=== PATIENT | male | born 1985 | race Caucasian/White ===

== ENCOUNTER 2017-01-13 23:40 | Emergency (ER) | payer OTHER | END 2017-01-14 00:41 | disposition home or self-care (01) | LOC: ER 23:40 | DX: M25.562 Pain in left knee (principal); G89.29 Other chronic pain; F17.200 Nicotine dependence, unspecified, uncomplicated; F43.10 Post-traumatic stress disorder, unspecified | CPT/HCPCS: 73560-LT; 96372; 99283; J1885 ==